=== PATIENT | male | born 1985 | race Hispanic/Latino ===

== ENCOUNTER 2017-10-28 12:11 | Outpatient (CLI) | payer SELFPAY ==
[2017-10-28 13:27] LABS: #Basophils 0.1 thou/uL (0.0-0.2); #Eosinphils 0.1 thou/uL (0.0-0.7); #Lymphocytes 2.9 thou/uL (1.20-3.40); #Monocytes 0.6 thou/uL (0.11-0.59); #Neutrophils 6.4 thou/uL (1.40-6.50); %Eosinophils 1.1 % (0.0-10.0); %Lymphocytes 28.3 % (21.0-51.0); %Monocytes 6.2 % (0.0-10.0); %Neutrophils 63.5 % (42.0-75.0); Mean Corpuscular HGB CONC 32.3 g/dL (32.0-36.0); Mean Corpuscular Hemoglobin 30.4 pg (27.0-31.0); Mean Corpuscular Volume 94.1 fl (80.0-94.0); Mean Platelet Volume 9.6 fL (7.4-10.4); Platelet Count 174 thou/uL (130-400); RBC Distribution Width 12.5 % (11.5-14.5); Red Blood Cell (RBC) Count 6.24 mill/uL (4.70-6.10); White Blood Cell (WBC) Count 10.1 thou/uL (4.8-10.8)
[2017-10-28 13:56] LABS: Anion Gap 13 mmol/L (10-20); BUN (Urea Nitrogen) 11 mg/dL (8.9-20.6); Calc. Creatinine Clearance 0 mL/min (70-130); Calcium 9.5 mg/dL (7.8-10.44); Carbon Dioxide 31 mmol/L (22-29); Chloride 96 mmol/L (98-107); Estimated GFR-MDRD Greater than 90; Glucose 312 mg/dL (70-105); Potassium 4.3 mmol/L (3.5-5.1); Sodium 136 mmol/L (136-145)
== END 2017-10-28 12:12 | disposition home or self-care (01) ==
LOC: LABBT 12:11
PROVIDERS: ATTEND Surgery
DX: Z01.812 Encounter for preprocedural laboratory examination (principal); L05.91 Pilonidal cyst without abscess
CPT/HCPCS: 80048; 85025

== ENCOUNTER 2017-11-10 17:13 | Emergency (ER) | payer SELFPAY ==
[2017-11-10 18:11] LABS: Anion Gap 13 mmol/L (10-20); BUN (Urea Nitrogen) 9 mg/dL (8.9-20.6); Calc. Creatinine Clearance 0 mL/min (70-130); Calcium 9.1 mg/dL (7.8-10.44); Carbon Dioxide 27 mmol/L (22-29); Chloride 101 mmol/L (98-107); Estimated GFR-MDRD Greater than 90; Glucose 352 mg/dL (70-105); Sodium 137 mmol/L (136-145)
== END 2017-11-10 20:24 | disposition home or self-care (01) ==
LOC: ERS 17:13
DX: E86.0 Dehydration (principal); R73.9 Hyperglycemia, unspecified; G47.00 Insomnia, unspecified
CPT/HCPCS: 36415; 36416; 82010; 96360; 96361

== ENCOUNTER 2018-12-29 02:46 | Emergency (ER) | payer SELFPAY ==
[2018-12-29] MEDS ORDERED: Ketorolac Tromethamine 60 MG/2 ML VIAL ONE (03:06)
--- NOTE | 2018-12-29 07:40 | RAD ---
CHEST 2 VIEWS: Date: 12/29/18 INDICATION: Back pain and cough. FINDINGS: Motion artifact limits image detail on the lateral projection. No definite consolidation is evident. There is mild prominence of the cardiac silhouette, much of which is likely related to low lung volum es on the PA projection. No pleural effusion is evident. No acute osseous abnormality is evident. IMPRESSION: Low lung volumes. Some limitations to exam as above. No definite acute cardiopulmonary abnormality. POS: [facility]
== END 2018-12-29 03:25 | disposition home or self-care (01) ==
LOC: SCSER 02:46
DX: S29.011A Strain of muscle and tendon of front wall of thorax, initial encounter (principal); G47.30 Sleep apnea, unspecified; X50.9XXA Other and unspecified overexertion or strenuous movements or postures, initial encounter
CPT/HCPCS: 71046; 96372; J1885